=== PATIENT | female | born 1985 | race Two or more races ===

== ENCOUNTER 2019-04-09 02:51 | Inpatient (IN) | payer OTHER ==
[~2019-04-09] VITALS: Ht 160 cm; Wt 3.2 kg
== END 2019-04-12 20:08 | disposition home or self-care (01) | DRG 788 ==
LOC: OB/GYN 02:51 → LDR 02:51 → OB/GYN 03:30 → LDR 07:20 → OB/GYN 04-10 08:12
PROVIDERS: ADMIT Obstetrics & Gynecology
PROC: 3E0P7VZ Introduction of Hormone into Female Reproductive, Via Natural or Artificial Opening (ICD-10-PCS; 2019-04-09)
PROC: 3E033VJ Introduction of Other Hormone into Peripheral Vein, Percutaneous Approach (ICD-10-PCS; 2019-04-09)
PROC: 4A1HXCZ Monitoring of Products of Conception, Cardiac Rate, External Approach (ICD-10-PCS; 2019-04-09)
PROC: 10D00Z1 Extraction of Products of Conception, Low, Open Approach (ICD-10-PCS; principal; 2019-04-09 20:00)
DX: O82 Encounter for cesarean delivery without indication (principal); O61.0 Failed medical induction of labor; Z3A.40 40 weeks gestation of pregnancy; Z37.0 Single live birth